=== PATIENT | female | born 1995 | race Caucasian/White ===

== ENCOUNTER 2018-04-22 17:26 | Observation (INO) ==
[2018-04-22 17:51] LABS: Microscopic, Urine URINE MICROSCOPIC (MICROSCOPIC)
[2018-04-22 17:53] LABS: Appearance,Urine CLEAR (Clear); Bilirubin,Urine Negative (Negative); Blood, Urine TRACE-I (Negative); Color,Urine YELLOW (Yellow); Glucose,Urine (UA) Negative (Negative); Ketones,Urine Negative (Negative); Leukocyte Esterase,Urine 2+ (Negative); PH,Urine 6.5 (5.0-8.5); Protein,Urine Negative (Negative); Specific Gravity, Urine <= 1.005 (1.005-1.030); Urobilinogen,Urine 0.2 EU/dl (0.2)
[2018-04-22 17:59] LABS: Basophils % 0.3 % (0.1-2.0); Eosinophils # 0.1 K/mm3 (0.0-0.4); Eosinophils % 0.8 % (0.1-12.0); Hematocrit 40.3 % (37.0-47.0); Hemoglobin 12.6 g/dL (12.2-16.2); Lymphocytes # 2.8 K/mm3 (0.7-4.5); Lymphocytes % 20.2 K/mm3 (10-50); Mean Corpuscular HGB Conc 31.2 g/dL (31.8-35.4); Mean Corpuscular Hemoglobin 27.4 pg (27.0-31.2); Mean Corpuscular Volume 87.7 fl (81-99); Mean Platelet Volume 9.7 fl (7.4-10.4); Monocytes # 0.8 K/mm3 (0.1-1.0); Monocytes % 5.7 % (1.7-9.3); Neutrophils # 10.2 K/mm3 (1.8-7.8); Platelet Count 390 K/mm3 (142-424); Red Cell Distribution Width 12.5 % (11.5-17.5)
[2018-04-22 18:08] LABS: Bacteria,Urine 2+ /lpf; Squamous Epithelial Cell,Urine 20-50 #/hpf (0-5); Trichomonas,Urine 2+ /lpf
[2018-04-22 18:14] LABS: Albumin Level 3.6 gm/dL (3.4-5.0); Albumin/Globulin Ratio 0.9 (1.1-1.8); Anion Gap 13.3 mEq/L (5-15); Bilirubin,Total 0.3 mg/dL (0.2-1.0); Calcium 8.5 mg/dL (8.5-10.1); Globulin 4.2 gm/dl (1.3-3.2); Potassium 3.3 mmoL/L (3.5-5.1); Total Protein,Serum 7.8 gm/dL (6.4-8.2)
--- NOTE | 2018-04-22 18:24 | Emergency Department Note ---
ED Disposition Clinical Impression: RUQ abdominal pain Disposition: Still a Patient Condition on Discharge: Fair Instructions: DI for Acute Abdomen Referrals: Ifeoma Romero MD [Primary Care Provider] - - Critical Care Critical Care Time: No Attestation: On 04/22/18, the high probability of a clinically significant, sudden or life threatening deterioration of the following system(s) required my full and direct attention, intervention and personal management. The time I documented below is in addition to time spent performing reported procedures but includes the following listed in this critical care notation. Medical Decision Making - Javed Inquiry Pt receiving controlled substance: No Javed was queried for this patient: No Vital Signs: 04/22/18 17:31 04/22/18 20:05 Temperature 99.3 F 98.1 F Temperature Source Oral Oral Pulse Rate [Right Radial] 138 H 89 Respiratory Rate 16 18 Blood Pressure [Right Arm] 168/108 139/84 Blood Pressure Mean [Right Arm] 128 102 Blood Pressure Source [Right Arm] Automatic Cuff Automatic Cuff Blood Pressure Position [Right Arm] Sitting Sitting 02 Sat by Pulse Oximetry 100 98 Oxygen Delivery Method Room Air Room Air - Lab Data Lab Results 04/22/18 17:44: Urine Color Yellow, Urine Appearance Clear, Urine pH 6.5, Ur Specific [place] <= 1.005, Urine Protein Negative, Urine Glucose (UA) Negative, Urine Ketones Negative, Urine Blood Trace-i, Urine Nitrate Negative, Urine Bilirubin Negative, Urine Urobilinogen 0.2, Ur Leukocyte Esterase 2+ A, Urine WBC 5-10, Ur Squamous Epith Cells 20-50, Urine Bacteria 2+, Urine Trichomonas 2+ 04/22/18 17:44: Urine HCG, Qual Negative 04/22/18 17:50: WBC 14.0 H, RBC 4.60, Hgb 12.6, Hct 40.3, MCV 87.7, MCH 27.4, MCHC 31.2 L, RDW 12.5, Plt Count 390, MPV 9.7, Neut % (Auto) 73.0, Lymph % (Auto ) 20.2, [place] % (Auto) 5.7, Eos % (Auto) 0.8, Baso % (Auto) 0.3, Neut # (Auto) 10.2 H, Lymph # (Auto) 2.8, [place] # (Auto) 0.8, Eos # (Auto) 0.1, Baso # (Auto) 0.0 04/22/18 17:50: Sodium 139, Potassium 3.3 L, Chloride 103, Carbon Dioxide 26, Anion Gap 13.3, BUN 6 L, Creatinine 0.72, Estimated Creat Clear 103, Estimated GFR 103, Est GFR ( Amer) 125, Glucose 102, Calcium 8.5, Total Bilirubin 0.3, AST 15, ALT 15, Alkaline Phosphatase 77, Total Protein 7.8, Albumin 3.6, Globulin 4.2 H, Albumin/Globulin Ratio 0.9 L, Amylase 46 04/22/18 17:50: Lipase 81 04/22/18 19:13: Lactic Acid 1.1 Result diagrams: 04/22/18 17:50 04/22/18 17:50 Orders (Tests/Meds): ED MEDICATIONS Generic Name Dose Route Start Last Admin Trade Name Freq PRN Reason Stop Dose Admin Ketorolac Tromethamine 15 mg 04/22/18 18:30 04/22/18 19:34 Toradol 30mg/Ml Vial IV 05/22/18 18:29 15 mg Q6H ABRAM Administration Discontinued Medications Generic Name Dose Route Start Last Admin Trade Name Freq PRN Reason Stop Dose Admin Metronidazole 100 mls @ 100 mls/hr 04/22/18 18:50 04/22/18 19:34 Flagyl 500mg/100ml Ivpb IV 04/22/18 19:49 100 mls/hr ONCE ONE Administration Protocol ORDERS Category Date Time Status CT abdomen pelvis w con Stat Cat Scan 04/22/18 18:18 Taken Blood Culture Stat Micro 04/22/18 19:13 Received Urine Culture Stat Micro 04/22/18 17:44 Received Medical Decision Narrative: Patient remained stable she received Toradol IV for pain obtain blood cultures lactic acid that was on normal limits she started on IV antibiotic. [address] Nicole the on-call surgeon who is reviewing the CT scan for disposition. [address] Nicole who advised bowel rest, IVF and IV ABx and RIQ US in AM. The patient and Dr Carmichael were agreeable. Abdominal Pain HPI - General Chief Complaint: Abdominal Pain Stated Complaint: right side pain Time Seen by Provider: 04/22/18 17:45 Mode of Arrival: Ambulatory Limitations: No Limitations Description of Symptoms (Recalled from ER Triage Doc. by RN): N/D, BLOATING, LOSS OF APPETITE FOR 3 DAYS AND LOSS OF APPETITE FOR A WEEK. PAIN IN RUQ - History of Present Illness HPI narrative: 22 years old white female smoker with a history of hypertension on beta- blockers and a poor historian. Yesterday at 9 AM she developed right upper quadrant pain after eating a heavy breakfast made of klein and grease. Kept ongoing sharp in character worse with deep breathing. She has no nausea no vomiting but she admits for having 3 loose bowel movements of pale-looking stool. She denies having him hematemesis hemoptysis coffee-ground emesis melanotic stool or bleeding per rectum. MD complaint: abdominal pain Onset (ago): hour(s) (33 hours.) Location: RUQ Severity: moderate Severity scale (1-10): 8 Quality: sharp Radiation: none Migration to: no migration Relieving factors: rest Exacerbating factors: other (Deep breathing. ) Associated symptoms: denies other symptoms - Related Data Allergies Allergy/AdvReac Type Severity Reaction Status Date / Time No Known Allergies Allergy Verified 04/22/18 17:41 [facility] History I have reviewed the patient's past medical history: Yes - Social History Smoking Status: Current every day smoker Tobacco Type: cigarettes # Packs/Day (cigarettes): 1 Alcohol Intake: never Substance Use Type: marijuana - Psychiatric History Expresses thoughts of harming self/others: None Suicide Plan Description: No Plan ROS Obtained: Yes All systems reviewed & no additional complaints Physical Exam - General General appearance: alert, in no apparent distress - Head Head exam: atraumatic, normocephalic, normal inspection - Eye Eye exam: Present: normal appearance, PERRL, EOMI - ENT ENT exam: Present: normal exam, normal oropharynx, mucous membranes moist, TM's normal bilaterally, normal external ear exam - Neck Neck exam: Present: normal inspection, full ROM, trachea midline. Absent: meningismus, lymphadenopathy - Chest Chest inspection: Present: normal inspection, symmetric chest wall rise. Absent : tenderness - Respiratory Respiratory exam: Present: normal lung sounds bilaterally. Absent: respiratory distress - Cardiovascular Cardiovascular exam: Present: regular rate, normal rhythm. Absent: JVD - Abdominal Exam Abdominal exam: Present: soft, normal bowel sounds, Duomnt's sign. Absent: distention, tenderness, guarding - External exam: Present: normal external exam - Extremities Exam Extremities exam: Present: normal inspection, full ROM, normal capillary refill. Absent: calf tenderness - Back Exam Back exam: Present: normal inspection. Absent: tenderness - Neurological Exam Neurological exam: Present: alert, oriented X3, CN II-XII intact, motor sensory deficit, reflexes normal - Psychiatric Psychiatric exam: Present: normal affect, normal mood - Skin Skin exam: Present: warm, dry, intact, normal color - Lymphatic Lymphatic Findings: no adenopathy
--- NOTE | 2018-04-22 23:04 | Progress Note ---
Internal Medicine - PN: Subj *Date: 04/22/18 *Time: 23:01 Interval history: This young lady has had abdominal discomfort since yesterday. The pain is in the right side. She has had some diarrhea. She has not had vomiting. Her evaluation in the emergency room reportedly pointed toward the colitis rather than a gallbladder problem. She is receiving IV antibiotics. There is a surgical consult. Exam Vital signs and Labs for Last 24 Hours: Temp Pulse Resp BP Pulse Ox 98.1 F 86 18 132/80 98 04/22/18 21:30 04/22/18 21:30 04/22/18 21:30 04/22/18 21:30 04/22/18 21:25 Laboratory Results - last 24 hr 04/22/18 17:44: Urine Color Yellow, Urine Appearance Clear, Urine pH 6.5, Ur Specific [place] <= 1.005, Urine Protein Negative, Urine Glucose (UA) Negative, Urine Ketones Negative, Urine Blood Trace-i, Urine Nitrate Negative, Urine Bilirubin Negative, Urine Urobilinogen 0.2, Ur Leukocyte Esterase 2+ A, Urine WBC 5-10, Ur Squamous Epith Cells 20-50, Urine Bacteria 2+, Urine Trichomonas 2+ 04/22/18 17:44: Urine HCG, Qual Negative 04/22/18 17:50: WBC 14.0 H, RBC 4.60, Hgb 12.6, Hct 40.3, MCV 87.7, MCH 27.4, MCHC 31.2 L, RDW 12.5, Plt Count 390, MPV 9.7, Neut % (Auto) 73.0, Lymph % (Auto ) 20.2, [place] % (Auto) 5.7, Eos % (Auto) 0.8, Baso % (Auto) 0.3, Neut # (Auto) 10.2 H, Lymph # (Auto) 2.8, [place] # (Auto) 0.8, Eos # (Auto) 0.1, Baso # (Auto) 0.0 04/22/18 17:50: Sodium 139, Potassium 3.3 L, Chloride 103, Carbon Dioxide 26, Anion Gap 13.3, BUN 6 L, Creatinine 0.72, Estimated Creat Clear 103, Estimated GFR 103, Est GFR ( Amer) 125, Glucose 102, Calcium 8.5, Total Bilirubin 0.3, AST 15, ALT 15, Alkaline Phosphatase 77, Total Protein 7.8, Albumin 3.6, Globulin 4.2 H, Albumin/Globulin Ratio 0.9 L, Amylase 46 04/22/18 17:50: Lipase 81 04/22/18 19:13: Lactic Acid 1.1 I & O for Last 24 hours: Intake & Output 04/20/18 04/21/18 04/22/18 04/23/18 11:59 11:59 11:59 11:59 Weight 118 lb - Constitutional no acute distress - *Routine HEENT Exam Head: Present: normocephalic ENT: Present: mucous membranes moist - *Routine Neck Exam Present: supple - *Routine Respiratory Exam Comments: Somewhat decreased breath sounds and there may be some rales at the right base. She has abdominal discomfort when she takes a deep breath. - *Routine Cardiovascular Exam Present: RRR - *Routine Abdominal Exam Present: soft Comments: She has tenderness on the right side, in the right upper and lower quadrant areas. No masses are palpable. - *Routine Rectal Exam Comments: Not done - *Routine Extremities Exam Absent: edema - *Routine Skin Exam Present: intact - *Routine Neurological Exam Present: alert, oriented X3 Assessment and Plan (1) Colitis Current visit: Yes Status: Acute Category: Medical Code(s): K52.9 - Noninfective gastroenteritis and colitis, unspecified - Assessment and plan all Dx Assessment and Plan for all problems:: Receiving IV antibiotics. Stool PCR will be ordered. Surgical consult is obtained.
[2018-04-23 05:59] LABS: Basophils % 0.3 % (0.1-2.0); Eosinophils # 0.1 K/mm3 (0.0-0.4); Eosinophils % 1.2 % (0.1-12.0); Hematocrit 36.3 % (37.0-47.0); Hemoglobin 11.6 g/dL (12.2-16.2); Lymphocytes # 1.8 K/mm3 (0.7-4.5); Lymphocytes % 16.6 K/mm3 (10-50); Mean Corpuscular Hemoglobin 28.3 pg (27.0-31.2); Mean Corpuscular Volume 88.6 fl (81-99); Mean Platelet Volume 9.9 fl (7.4-10.4); Monocytes # 0.7 K/mm3 (0.1-1.0); Monocytes % 6.2 % (1.7-9.3); Neutrophils # 8.2 K/mm3 (1.8-7.8); Neutrophils % 75.8 % (37.0-80.0); Platelet Count 321 K/mm3 (142-424); Red Cell Distribution Width 12.5 % (11.5-17.5); White Blood Count 10.8 K/mm3 (4.5-13.0)
[2018-04-23 06:14] LABS: Anion Gap 12.7 mEq/L (5-15); Calcium 8.1 mg/dL (8.5-10.1); Potassium 3.7 mmoL/L (3.5-5.1)
--- NOTE | 2018-04-23 07:20 | Pharmacy Consult Notes ---
[facility] Pharmacy VTE Monitoring - Patient Demographics Admission date: 04/22/18 Report Date: 04/23/18 Time: 07:19 Allergies/Adverse Reactions: Patient Allergies No Known Allergies Allergy (Verified 04/22/18 17:41) Height: 1.57 m Weight: 53.524 kg Patient Problems: Current Active Problems RUQ abdominal pain (Acute) Colitis (Acute) - VTE Risk Labs: VTE Related Lab Results Hgb 11.6 g/dL (12.2-16.2) L 04/23/18 05:23 Hct 36.3 % (37.0-47.0) L 04/23/18 05:23 Plt Count 321 K/mm3 (142-424) 04/23/18 05:23 BUN 6 mg/dL (7-18) L 04/23/18 05:23 Creatinine 0.71 mg/dL (0.55-1.02) 04/23/18 05:23 Estimated Creat Clear 107 mL/min (0-300) 04/23/18 05:23 Was VTE Risk Assessment Performed: Yes VTE Score: 0 VTE Risk Level: Very Low Risk - Prophylaxis VTE Prophylaxis Ordered?: Yes Types of VTE Prophylaxis: TEDS Knee High Location of Applied Device: Bilateral Lower Extremeties - VTE Diagnosis Confirmed Treatment or plan recommended: Continue Current Treatment
--- NOTE | 2018-04-23 08:48 | History & Physical Report ---
*Admission Date: 04/22/18 *Chief complaint: abdominal pain *History of present illness: Ms. Tony is a 22yo female who has had abdominal discomfort for the past 2 days. The pain is in the right side. She has had some diarrhea. She has not had vomiting. Her evaluation in the emergency room reportedly pointed toward colitis rather than a gallbladder problem. She is receiving IV antibiotics. There is a surgical consult. [facility] History Medical History: Reports:: Hypertension Denies:: Cancer, Diabetes Mellitus Type 1, Diabetes Mellitus Type 2, MRSA Other Surgeries: Yes: No Previous Surgery Amputation: No Fractures: No - *Social History Educational Level: Attended High School Smoking Status: Current every day smoker Tobacco Type: cigarettes # Packs/Day (cigarettes): 1 #Yrs smoked (if former smoker): 11 Alcohol Intake: never Substance Use Type: marijuana Occupational Status: unemployed Housing: house Household Members: family - Psychiatric History Expresses thoughts of harming self/others: None Suicide Plan Description: No Plan *Family Hx:: Cancer (ovarian) Review of Systems - Constitutional Reports weakness, Denies fever(s) - Eyes Denies blurry vision, Denies double vision - ENT Denies nasal congestion, Denies sore throat - *Cardiovascular Denies chest pain, Denies rapid, pounding, or irregular heartbeat - *Respiratory Denies cough, Denies shortness of breath - *Gastrointestinal Reports abdominal pain (right side), Reports loose stools, Reports nausea, Denies bright, red blood in stools, Denies vomiting - *Genitourinary Denies difficulty urinating, Denies painful urination - *Musculoskeletal Denies joint pain - *Neurologic Reports headache(s), Reports weakness, Denies dizziness Meds Home Medications Medication Instructions Recorded Confirmed Type Metoprolol Tartrate 100 mg PO DAILY 04/22/18 04/22/18 History Allergies Allergy/AdvReac Type Severity Reaction Status Date / Time No Known Allergies Allergy Verified 04/22/18 17:41 Exam Vital signs and Labs for Last 24 Hours: Temp Pulse Resp BP Pulse Ox 98.2 F 96 H 18 146/88 98 04/23/18 07:27 04/23/18 07:27 04/23/18 07:27 04/23/18 07:27 04/23/18 07:27 Laboratory Results - last 24 hr 04/22/18 17:44: Urine Color Yellow, Urine Appearance Clear, Urine pH 6.5, Ur Specific [place] <= 1.005, Urine Protein Negative, Urine Glucose (UA) Negative, Urine Ketones Negative, Urine Blood Trace-i, Urine Nitrate Negative, Urine Bilirubin Negative, Urine Urobilinogen 0.2, Ur Leukocyte Esterase 2+ A, Urine WBC 5-10, Ur Squamous Epith Cells 20-50, Urine Bacteria 2+, Urine Trichomonas 2+ 04/22/18 17:44: Urine HCG, Qual Negative 04/22/18 17:50: WBC 14.0 H, RBC 4.60, Hgb 12.6, Hct 40.3, MCV 87.7, MCH 27.4, MCHC 31.2 L, RDW 12.5, Plt Count 390, MPV 9.7, Neut % (Auto) 73.0, Lymph % (Auto ) 20.2, [place] % (Auto) 5.7, Eos % (Auto) 0.8, Baso % (Auto) 0.3, Neut # (Auto) 10.2 H, Lymph # (Auto) 2.8, [place] # (Auto) 0.8, Eos # (Auto) 0.1, Baso # (Auto) 0.0 04/22/18 17:50: Sodium 139, Potassium 3.3 L, Chloride 103, Carbon Dioxide 26, Anion Gap 13.3, BUN 6 L, Creatinine 0.72, Estimated Creat Clear 103, Estimated GFR 103, Est GFR ( Amer) 125, Glucose 102, Calcium 8.5, Total Bilirubin 0.3, AST 15, ALT 15, Alkaline Phosphatase 77, Total Protein 7.8, Albumin 3.6, Globulin 4.2 H, Albumin/Globulin Ratio 0.9 L, Amylase 46 04/22/18 17:50: Lipase 81 04/22/18 19:13: Lactic Acid 1.1 04/23/18 05:23: WBC 10.8, RBC 4.10 L, Hgb 11.6 L, Hct 36.3 L, MCV 88.6, MCH 28.3 , MCHC 32.0, RDW 12.5, Plt Count 321, MPV 9.9, Neut % (Auto) 75.8, Lymph % (Auto ) 16.6, [place] % (Auto) 6.2, Eos % (Auto) 1.2, Baso % (Auto) 0.3, Neut # (Auto) 8.2 H, Lymph # (Auto) 1.8, [place] # (Auto) 0.7, Eos # (Auto) 0.1, Baso # (Auto) 0.0 04/23/18 05:23: Sodium 138, Potassium 3.7, Chloride 105, Carbon Dioxide 24, Anion Gap 12.7, BUN 6 L, Creatinine 0.71, Estimated Creat Clear 107, Estimated GFR 105, Est GFR ( Amer) 127, Glucose 103, Calcium 8.1 L, Triglycerides 69, Cholesterol 108 L, LDL Cholesterol 67, VLDL Cholesterol 14, HDL Cholesterol 27 L, Cholesterol/HDL Ratio 4.0 H I & O for Last 24 hours: Intake & Output 04/20/18 04/21/18 04/22/18 04/23/18 11:59 11:59 11:59 11:59 Intake Total 150 / 150 Balance 150 / 150 Weight 118 lb - Constitutional no acute distress - *Routine HEENT Exam Head: Present: normocephalic, atraumatic Eye: Present: EOMI ENT: Present: mucous membranes dry - *Routine Neck Exam Present: supple, full ROM - *Routine Respiratory Exam Present: CTA bilaterally - *Routine Cardiovascular Exam Present: RRR - *Routine Abdominal Exam Present: soft, normoactive bowel sounds, tenderness (right upper and mid quadrants) - *Routine Extremities Exam Absent: edema - *Routine Skin Exam Present: intact - *Routine Neurological Exam Present: alert, oriented X3 H&P: Result - Labs Labs: Assessment and Plan (1) Colitis Current visit: Yes Status: Acute Category: Medical Code(s): K52.9 - Noninfective gastroenteritis and colitis, unspecified (2) Hypertension Current visit: Yes Status: Acute Category: Medical Code(s): I10 - Essential (primary) hypertension - Assessment and plan all Dx Assessment and Plan for all problems:: Still awaiting abdominal CT report. Surgery has been consulted. Patient has been started on antibiotics and IV pain medication. Will restart on her metoprolol as well.
--- NOTE | 2018-04-23 09:13 | Consult Report ---
*Admission Date: 04/22/18 *Chief complaint: Right upper quadrant pain *History of present illness: This is a 22-year-old female seen in consultation from Dr. Carmichael service for evaluation regarding right upper quadrant pain. Below is a forwarded copy of her history of present illness from her admission H &P: Ms. Tony is a 22yo female who has had abdominal discomfort for the past 2 days. The pain is in the right side. She has had some diarrhea. She has not had vomiting. Her evaluation in the emergency room reportedly pointed toward colitis rather than a gallbladder problem. She is receiving IV antibiotics. There is a surgical consult. Review of Systems - Constitutional Reports anorexia - Eyes Denies change in vision - *Cardiovascular Denies chest pain - *Respiratory Denies cough - *Gastrointestinal Reports abdominal pain, Reports nausea, Denies vomiting blood, Denies bright, red blood in stools, Denies vomiting - *Neurologic Reports headache(s), Reports weakness, Denies dizziness - Hematologic/Lymphatic Denies easy bleeding [facility] History Medical History: Reports:: Hypertension Denies:: Cancer, Diabetes Mellitus Type 1, Diabetes Mellitus Type 2, MRSA Other Surgeries: Yes: No Previous Surgery Amputation: No Fractures: No - *Social History Educational Level: Attended High School Smoking Status: Current every day smoker Tobacco Type: cigarettes # Packs/Day (cigarettes): 1 #Yrs smoked (if former smoker): 11 Alcohol Intake: never Substance Use Type: marijuana Occupational Status: unemployed Housing: house Household Members: family - Psychiatric History Expresses thoughts of harming self/others: None Suicide Plan Description: No Plan *Family Hx:: Cancer (ovarian) Meds Home Medications Medication Instructions Recorded Confirmed Type Metoprolol Tartrate 100 mg PO DAILY 04/22/18 04/22/18 History Allergies Allergy/AdvReac Type Severity Reaction Status Date / Time No Known Allergies Allergy Verified 04/22/18 17:41 Exam Vital signs and Labs for Last 24 Hours: Temp Pulse Resp BP Pulse Ox 98.2 F 96 H 18 146/88 98 04/23/18 07:27 04/23/18 07:27 04/23/18 07:27 04/23/18 07:27 04/23/18 07:27 Laboratory Results - last 24 hr 04/22/18 17:44: Urine Color Yellow, Urine Appearance Clear, Urine pH 6.5, Ur Specific [place] <= 1.005, Urine Protein Negative, Urine Glucose (UA) Negative, Urine Ketones Negative, Urine Blood Trace-i, Urine Nitrate Negative, Urine Bilirubin Negative, Urine Urobilinogen 0.2, Ur Leukocyte Esterase 2+ A, Urine WBC 5-10, Ur Squamous Epith Cells 20-50, Urine Bacteria 2+, Urine Trichomonas 2+ 04/22/18 17:44: Urine HCG, Qual Negative 04/22/18 17:50: WBC 14.0 H, RBC 4.60, Hgb 12.6, Hct 40.3, MCV 87.7, MCH 27.4, MCHC 31.2 L, RDW 12.5, Plt Count 390, MPV 9.7, Neut % (Auto) 73.0, Lymph % (Auto ) 20.2, [place] % (Auto) 5.7, Eos % (Auto) 0.8, Baso % (Auto) 0.3, Neut # (Auto) 10.2 H, Lymph # (Auto) 2.8, [place] # (Auto) 0.8, Eos # (Auto) 0.1, Baso # (Auto) 0.0 04/22/18 17:50: Sodium 139, Potassium 3.3 L, Chloride 103, Carbon Dioxide 26, Anion Gap 13.3, BUN 6 L, Creatinine 0.72, Estimated Creat Clear 103, Estimated GFR 103, Est GFR ( Amer) 125, Glucose 102, Calcium 8.5, Total Bilirubin 0.3, AST 15, ALT 15, Alkaline Phosphatase 77, Total Protein 7.8, Albumin 3.6, Globulin 4.2 H, Albumin/Globulin Ratio 0.9 L, Amylase 46 04/22/18 17:50: Lipase 81 04/22/18 19:13: Lactic Acid 1.1 04/23/18 05:23: WBC 10.8, RBC 4.10 L, Hgb 11.6 L, Hct 36.3 L, MCV 88.6, MCH 28.3 , MCHC 32.0, RDW 12.5, Plt Count 321, MPV 9.9, Neut % (Auto) 75.8, Lymph % (Auto ) 16.6, [place] % (Auto) 6.2, Eos % (Auto) 1.2, Baso % (Auto) 0.3, Neut # (Auto) 8.2 H, Lymph # (Auto) 1.8, [place] # (Auto) 0.7, Eos # (Auto) 0.1, Baso # (Auto) 0.0 04/23/18 05:23: Sodium 138, Potassium 3.7, Chloride 105, Carbon Dioxide 24, Anion Gap 12.7, BUN 6 L, Creatinine 0.71, Estimated Creat Clear 107, Estimated GFR 105, Est GFR ( Amer) 127, Glucose 103, Calcium 8.1 L, Triglycerides 69, Cholesterol 108 L, LDL Cholesterol 67, VLDL Cholesterol 14, HDL Cholesterol 27 L, Cholesterol/HDL Ratio 4.0 H I & O for Last 24 hours: Intake & Output 04/20/18 04/21/18 04/22/18 04/23/18 11:59 11:59 11:59 11:59 Intake Total 150 / 150 Balance 150 / 150 Weight 118 lb - Constitutional mild distress Comments: Complaining of abdominal pain - *Routine Respiratory Exam Absent: respiratory distress - *Routine Abdominal Exam Present: soft, tenderness. Absent: distended Comments: RUQ TTP Results - Labs 04/23/18 05:23 04/23/18 05:23 Laboratory Results - last 24 hr 04/22/18 17:44: Urine Color Yellow, Urine Appearance Clear, Urine pH 6.5, Ur Specific [place] <= 1.005, Urine Protein Negative, Urine Glucose (UA) Negative, Urine Ketones Negative, Urine Blood Trace-i, Urine Nitrate Negative, Urine Bilirubin Negative, Urine Urobilinogen 0.2, Ur Leukocyte Esterase 2+ A, Urine WBC 5-10, Ur Squamous Epith Cells 20-50, Urine Bacteria 2+, Urine Trichomonas 2+ 04/22/18 17:44: Urine HCG, Qual Negative 04/22/18 17:50: WBC 14.0 H, RBC 4.60, Hgb 12.6, Hct 40.3, MCV 87.7, MCH 27.4, MCHC 31.2 L, RDW 12.5, Plt Count 390, MPV 9.7, Neut % (Auto) 73.0, Lymph % (Auto ) 20.2, [place] % (Auto) 5.7, Eos % (Auto) 0.8, Baso % (Auto) 0.3, Neut # (Auto) 10.2 H, Lymph # (Auto) 2.8, [place] # (Auto) 0.8, Eos # (Auto) 0.1, Baso # (Auto) 0.0 04/22/18 17:50: Sodium 139, Potassium 3.3 L, Chloride 103, Carbon Dioxide 26, Anion Gap 13.3, BUN 6 L, Creatinine 0.72, Estimated Creat Clear 103, Estimated GFR 103, Est GFR ( Amer) 125, Glucose 102, Calcium 8.5, Total Bilirubin 0.3, AST 15, ALT 15, Alkaline Phosphatase 77, Total Protein 7.8, Albumin 3.6, Globulin 4.2 H, Albumin/Globulin Ratio 0.9 L, Amylase 46 04/22/18 17:50: Lipase 81 04/22/18 19:13: Lactic Acid 1.1 04/23/18 05:23: WBC 10.8, RBC 4.10 L, Hgb 11.6 L, Hct 36.3 L, MCV 88.6, MCH 28.3 , MCHC 32.0, RDW 12.5, Plt Count 321, MPV 9.9, Neut % (Auto) 75.8, Lymph % (Auto ) 16.6, [place] % (Auto) 6.2, Eos % (Auto) 1.2, Baso % (Auto) 0.3, Neut # (Auto) 8.2 H, Lymph # (Auto) 1.8, [place] # (Auto) 0.7, Eos # (Auto) 0.1, Baso # (Auto) 0.0 04/23/18 05:23: Sodium 138, Potassium 3.7, Chloride 105, Carbon Dioxide 24, Anion Gap 12.7, BUN 6 L, Creatinine 0.71, Estimated Creat Clear 107, Estimated GFR 105, Est GFR ( Amer) 127, Glucose 103, Calcium 8.1 L, Triglycerides 69, Cholesterol 108 L, LDL Cholesterol 67, VLDL Cholesterol 14, HDL Cholesterol 27 L, Cholesterol/HDL Ratio 4.0 H - Imaging CT scan - abdomen: report reviewed, image reviewed CT scan - pelvis: report reviewed, image reviewed Assessment and Plan (1) Colitis Current visit: Yes Status: Acute Category: Medical Code(s): K52.9 - Noninfective gastroenteritis and colitis, unspecified (2) Hypertension Current visit: Yes Status: Acute Category: Medical Code(s): I10 - Essential (primary) hypertension (3) RUQ abdominal pain Current visit: Yes Status: Acute Category: Medical Code(s): R10.11 - Right upper quadrant pain I have discussed the patient's CT scan with Dr. Maxwell. No definitive evidence of biliary disease per CT scan. Ultrasound pending. Changes consistent with possible enterocolitis. Follow-up pending ultrasound Continue NPO status for now Continue antibiotics for now Serial abdominal exams
--- NOTE | 2018-04-24 06:53 | Progress Note ---
Subjective Patient reports: other (feels "slightly better" this AM...increased nausea yesterday) Exam Vital signs and Labs for Last 24 Hours: Temp Pulse Resp BP Pulse Ox 97.6 F 81 16 152/79 97 04/24/18 04:00 04/24/18 04:00 04/24/18 04:00 04/24/18 04:00 04/24/18 04:00 I & O for Last 24 hours: Intake & Output 04/21/18 04/22/18 04/23/18 04/24/18 11:59 11:59 11:59 11:59 Intake Total 150 / 150 350 / 350 Output Total 700 / 700 Balance 150 / 150 -350 / -350 Weight 118 lb Microbiology Reports for the Last 24 Hours: Microbiology 04/22/18 17:44 Urine,Clean Catch Urine Culture - Preliminary NO GROWTH AFTER 24 HOURS Radiology Reports for the Last 24 Hours: CT shows changes most c/w enterocolitis US shows changes concerning for hepatitis (no significant GB abnormality) - Constitutional no acute distress - *Routine Respiratory Exam Absent: respiratory distress - *Routine Abdominal Exam Present: soft, tenderness Comments: RUQ TTP persists Progress Note: A&P (1) Colitis Status: Acute Assessment and plan: continue medical management Current Visit: Yes (2) Hypertension Status: Acute Current Visit: Yes (3) RUQ abdominal pain Status: Acute Assessment and plan: ? hepatitis (based on US) f/u pending hepatitis panel Current Visit: Yes
--- NOTE | 2018-04-24 08:31 | Progress Note ---
Internal Medicine - PN: Subj *Date: 04/24/18 *Time: 08:28 Interval history: Patient states she feels slightly better this morning. She is still having right upper quadrant and mild right middle quadrant pain. She has been able to eat a small amount of food. She states she still did not rest well last night. Exam Vital signs and Labs for Last 24 Hours: Temp Pulse Resp BP Pulse Ox 98.5 F 87 16 149/78 98 04/24/18 08:00 04/24/18 08:00 04/24/18 08:00 04/24/18 08:00 04/24/18 08:00 I & O for Last 24 hours: Intake & Output 04/21/18 04/22/18 04/23/18 04/24/18 11:59 11:59 11:59 11:59 Intake Total 150 / 150 450 / 450 Output Total 1400 / 1400 Balance 150 / 150 -950 / -950 Weight 118 lb Microbiology Reports for the Last 24 Hours: Microbiology 04/22/18 17:44 Urine,Clean Catch Urine Culture - Final Multiple organisms, suggests contamination. Radiology Reports for the Last 24 Hours: Abdominal CT There is a small amount of fluid in the lower perihepatic region and hepatorenal area on the right with minimal stranding of the fat also with a small amount of fluid in the pelvis which has a somewhat hazy density. There are a few scattered air-fluid levels in the small bowel. Underlying inflammation /enterocolitis is a consideration. No abscess or free air evident. There are multiple unopacified bowel loops present within the abdomen/pelvis which could obscure or mimic pathology. If symptoms persists, consider repeating exam with IV and oral contrast administration RUQ U/S No gallstones. No evidence of cholecystitis. Starry night appearance of the liver which be seen with hepatitis. Please correlate clinically - Constitutional no acute distress - *Routine Respiratory Exam Present: CTA bilaterally - *Routine Cardiovascular Exam Present: RRR - *Routine Abdominal Exam Present: soft, normoactive bowel sounds, tenderness (RUQ and RMQ pain) - *Routine Extremities Exam Absent: edema Assessment and Plan (1) Colitis Current visit: Yes Status: Acute Category: Medical Code(s): K52.9 - Noninfective gastroenteritis and colitis, unspecified (2) Hypertension Current visit: Yes Status: Acute Category: Medical Code(s): I10 - Essential (primary) hypertension (3) RUQ abdominal pain Current visit: Yes Status: Acute Category: Medical Code(s): R10.11 - Right upper quadrant pain (4) Trichomonas infection Current visit: Yes Status: Acute Category: Medical Code(s): A59.9 - Trichomoniasis, unspecified - Assessment and plan all Dx Assessment and Plan for all problems:: Patient's urine showed a trichomonas infection. She is on Flagyl. Her ultrasound showed a possible hepatitis. We will get hepatitis panel today. Continue IV antibiotics.
[2018-04-24 10:28] LABS: Albumin Level 3.7 gm/dL (3.4-5.0); Albumin/Globulin Ratio 0.8 (1.1-1.8); Bilirubin,Total 0.3 mg/dL (0.2-1.0); Calcium 8.9 mg/dL (8.5-10.1); Globulin 4.6 gm/dl (1.3-3.2); Total Protein,Serum 8.3 gm/dL (6.4-8.2)
--- NOTE | 2018-04-24 12:59 | Consult Report ---
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 Tony is a 22 year old female CC: Josefina Carmcihael MD This 22-year-old 1 para 0 AB 1 white female has been hospitalized past 3 days with abdominal pain. CT and ultrasound of the abdomen were unremarkable. The patient has remained afebrile. Trichomonas is been discovered on vaginal culture, and the patient is receiving intravenous Flagyl. I have been asked to evaluate the patient from a gynecologic standpoint. She is a well-nourished well-developed white female, in no apparent acute distress. Her vital signs are normal. She states that she had one miscarriage, but also states that she has never had an actual Pap smear. She is not using any form of control. Abdominal examination reveals exquisite tenderness with rebound in the right upper quadrant, a positive Dumont's sign. Her liver edge is not palpable and does not seem tender. Her lower abdomen and transabdominal pelvic assessment seems normal, without tenderness. A bimanual pelvic examination in the patient's hospital bed reveals a normal size uterus and some tenderness in the left adnexal area, but no distinct mass that is palpable. Impression: #1: Trichomonas vaginalis, adequately treated with intravenous Flagyl. At some point the patient should have a follow-up pelvic exam, culture , and Pap smear. #2: Upper abdominal pain, consistent with cholecystitis. (I am told that Dr. Anderson [general surgery]has seen the patient and does not feel that her gallbladder is the culprit. #3: Her pelvic exam is not terribly remarkable. Apparently a test has not been done and I have ordered one for completeness. I have discussed with her the need for a transvaginal pelvic ultrasound to be certain of that; it has been ordered. Plan: I will check on the results of the vaginal ultrasound. If it is normal she needs routine gynecologic follow-up in addition to whatever determined about her right upper quadrant pain; I will be happy to see her in the office at some point for that purpose. If the pelvic ultrasound is abnormal, I will address that issue. Thank you for consulting me Review of Systems - *Neurologic Reports headache(s), Reports weakness, Denies dizziness [facility] History Medical History: Reports:: Hypertension Denies:: Cancer, Diabetes Mellitus Type 1, Diabetes Mellitus Type 2, MRSA Other Surgeries: Yes: No Previous Surgery Amputation: No Fractures: No - *Social History Educational Level: Attended High School Smoking Status: Current every day smoker Tobacco Type: cigarettes # Packs/Day (cigarettes): 1 #Yrs smoked (if former smoker): 11 Alcohol Intake: never Substance Use Type: marijuana Occupational Status: unemployed Housing: house Household Members: family - Psychiatric History Expresses thoughts of harming self/others: None Suicide Plan Description: No Plan *Family Hx:: Cancer (ovarian) Meds Home Medications Medication Instructions Recorded Confirmed Type Metoprolol Tartrate 50 mg PO DAILY 04/23/18 04/23/18 History Allergies Allergy/AdvReac Type Severity Reaction Status Date / Time No Known Allergies Allergy Verified 04/22/18 17:41 [employer] O[employer] - Exam Vital signs: Temp Pulse Resp BP Pulse Ox 98.5 F 87 18 149/78 98 04/24/18 08:00 04/24/18 08:00 04/24/18 12:47 04/24/18 08:00 04/24/18 08:00 [employer] OPERATOR - Results - Labs CBC & Chem 7: 04/23/18 05:23 04/24/18 10:10 Labs: BMP 04/24/18 10:10 Sodium 137 Potassium 4.0 Chloride 102 Carbon Dioxide 27 BUN 7 Creatinine 0.75 Glucose 89 Calcium 8.9 Liver Function 04/24/18 Range/Units 10:10 Total Bilirubin 0.3 (0.2-1.0) mg/dL AST 12 L (15-37) U/L ALT 14 (12-78) U/L Alkaline Phosphatase 82 (46-116) U/L Albumin 3.7 (3.4-5.0) gm/dL Assessment and Plan (1) Colitis Current visit: Yes Status: Acute Category: Medical Code(s): K52.9 - Noninfective gastroenteritis and colitis, unspecified (2) Hypertension Current visit: Yes Status: Acute Category: Medical Code(s): I10 - Essential (primary) hypertension (3) RUQ abdominal pain Current visit: Yes Status: Acute Category: Medical Code(s): R10.11 - Right upper quadrant pain (4) Trichomonas infection Current visit: Yes Status: Acute Category: Medical Code(s): A59.9 - Trichomoniasis, unspecified
[2018-04-24 18:45] LABS: Amphetamine/Metha Screen,Urine Negative ng/mL (<1000); Barbiturates Screen,Urine Negative ng/mL (<200); Benzodiazepines Screen,Urine Positive ng/mL (<200); Cannabinoid Screen,Urine Positive ng/mL (<50); Cocaine Screen,Urine Positive ng/mL (<300); Methadone Screen,Urine Negative ng/mL (<300); Opiate Screen,Urine Negative ng/mL (<300); Phencyclidine Screen,Urine Negative ng/mL (<25)
--- NOTE | 2018-04-25 07:11 | Progress Note ---
Subjective Patient reports: feels better (wants to go home) Exam Vital signs and Labs for Last 24 Hours: Temp Pulse Resp BP Pulse Ox 98.2 F 82 16 129/75 98 04/25/18 03:44 04/25/18 03:44 04/25/18 03:44 04/25/18 03:44 04/25/18 03:44 Laboratory Results - last 24 hr 04/22/18 17:49: Urine HCG, Qual Negative 04/22/18 17:49: Urine Opiates Screen Negative, Urine Methadone Screen Negative, Ur Barbituates Screen Negative, Ur Phencyclidine Scrn Negative, Ur Amphetamines Screen Negative, U Benzodiazepines Scrn Positive H, Urine Cocaine Screen Positive H, U Marijuana (THC) Screen Positive H 04/24/18 10:10: Sodium 137, Potassium 4.0, Chloride 102, Carbon Dioxide 27, Anion Gap 12.0, BUN 7, Creatinine 0.75, Estimated Creat Clear 101, Estimated GFR 99, Est GFR ( Amer) 119, Glucose 89, Calcium 8.9, Total Bilirubin 0.3 , AST 12 L, ALT 14, Alkaline Phosphatase 82, Total Protein 8.3 H, Albumin 3.7, Globulin 4.6 H, Albumin/Globulin Ratio 0.8 L I & O for Last 24 hours: Intake & Output 04/22/18 04/23/18 04/24/18 04/25/18 11:59 11:59 11:59 11:59 Intake Total 150 / 150 550 / 550 490 / 490 Output Total 1400 / 1400 1100 / 1100 Balance 150 / 150 -850 / -850 -610 / -610 Weight 118 lb Microbiology Reports for the Last 24 Hours: Microbiology 04/22/18 19:13 Blood Blood Culture - Preliminary NO GROWTH AFTER 48 HOURS 04/22/18 19:13 Blood Blood Culture - Preliminary NO GROWTH AFTER 48 HOURS 04/22/18 17:44 Urine,Clean Catch Urine Culture - Final Multiple organisms, suggests contamination. - Constitutional no acute distress - *Routine Respiratory Exam Absent: respiratory distress - *Routine Abdominal Exam Present: soft Comments: less TTP Progress Note: A&P (1) Colitis Status: Acute Current Visit: Yes (2) Hypertension Status: Acute Current Visit: Yes (3) RUQ abdominal pain Status: Acute Assessment and plan: most likely secondary to enterocolitis and/or hepatitis (as these are the only findings per CT and US). no evidence of biliary disease. [she states that she is "much better now"] ongoing care as per primary service Current Visit: Yes (4) Trichomonas infection Status: Acute Current Visit: Yes
[2018-04-25 08:15] VITALS: BP 156/85
--- NOTE | 2018-04-25 08:18 | Progress Note ---
Internal Medicine - PN: Subj *Date: 04/25/18 *Time: 08:15 Interval history: Patient states she feels fine this morning. She had a HIDA scan last night. She denies any pain and would like some food. Exam Vital signs and Labs for Last 24 Hours: Temp Pulse Resp BP Pulse Ox 98.4 F 87 16 156/85 99 04/25/18 08:00 04/25/18 08:00 04/25/18 08:00 04/25/18 08:00 04/25/18 08:00 Laboratory Results - last 24 hr 04/22/18 17:49: Urine HCG, Qual Negative 04/22/18 17:49: Urine Opiates Screen Negative, Urine Methadone Screen Negative, Ur Barbituates Screen Negative, Ur Phencyclidine Scrn Negative, Ur Amphetamines Screen Negative, U Benzodiazepines Scrn Positive H, Urine Cocaine Screen Positive H, U Marijuana (THC) Screen Positive H 04/24/18 10:10: Sodium 137, Potassium 4.0, Chloride 102, Carbon Dioxide 27, Anion Gap 12.0, BUN 7, Creatinine 0.75, Estimated Creat Clear 101, Estimated GFR 99, Est GFR ( Amer) 119, Glucose 89, Calcium 8.9, Total Bilirubin 0.3 , AST 12 L, ALT 14, Alkaline Phosphatase 82, Total Protein 8.3 H, Albumin 3.7, Globulin 4.6 H, Albumin/Globulin Ratio 0.8 L I & O for Last 24 hours: Intake & Output 04/22/18 04/23/18 04/24/18 04/25/18 11:59 11:59 11:59 11:59 Intake Total 150 / 150 550 / 550 490 / 490 Output Total 1400 / 1400 1100 / 1100 Balance 150 / 150 -850 / -850 -610 / -610 Weight 118 lb Microbiology Reports for the Last 24 Hours: Microbiology 04/22/18 19:13 Blood Blood Culture - Preliminary NO GROWTH AFTER 48 HOURS 04/22/18 19:13 Blood Blood Culture - Preliminary NO GROWTH AFTER 48 HOURS 04/22/18 17:44 Urine,Clean Catch Urine Culture - Final Multiple organisms, suggests contamination. - Constitutional no acute distress - *Routine Respiratory Exam Present: CTA bilaterally - *Routine Cardiovascular Exam Present: RRR - *Routine Abdominal Exam Present: soft, normoactive bowel sounds. Absent: tenderness - *Routine Extremities Exam Absent: edema Assessment and Plan (1) Colitis Current visit: Yes Status: Acute Category: Medical Code(s): K52.9 - Noninfective gastroenteritis and colitis, unspecified (2) Hypertension Current visit: Yes Status: Acute Category: Medical Code(s): I10 - Essential (primary) hypertension (3) RUQ abdominal pain Current visit: Yes Status: Acute Category: Medical Code(s): R10.11 - Right upper quadrant pain (4) Trichomonas infection Current visit: Yes Status: Acute Category: Medical Code(s): A59.9 - Trichomoniasis, unspecified (5) Biliary dyskinesia Current visit: Yes Status: Acute Category: Medical Code(s): K82.8 - Other specified diseases of gallbladder - Assessment and plan all Dx Assessment and Plan for all problems:: Patient wants to go home and see a surgeon on an outpatient basis. Will advance diet today and discuss further care with Dr. Carmichael.
[2018-04-25 09:15] LABS: Hepatitis B Core Antibody IgM Negative (Negative); Hepatitis B Surface Antigen Negative (Negative)
--- NOTE | 2018-04-25 15:58 | Discharge Summary ---
General - General Admission date:: 04/22/18 Discharge date: 04/25/18 HPI HPI: Ms. Tony is a 22yo female who has had abdominal discomfort for the past 2 days. The pain is in the right side. She has had some diarrhea. She has not had vomiting. Her evaluation in the emergency room reportedly pointed toward colitis rather than a gallbladder problem. She is receiving IV antibiotics. There is a surgical consult. Hospital Course Hospital Course: The patient was started on abx and pain medication. She was also restarted on her toprol. Trichomonas was found in her urine. She was already receiving flagyl. Dr. Nicole saw the patient and felt her CT showed changes most c/w enterocolitis and her RUQ US showed changes concerning for hepatitis but no significant GB abnormality. He recommended a hepatitis panel. 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 Dr. Hua saw the patient and did a pelvic examination. He did not feel she had PID. He did a transvaginal U/S that showed some ovarian cysts, but nothing else acute. He also did a urine test, which was negative, and a urine drug screen which was positive for cocaine. 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 She had a HIDA scan showing an EF of 17%. The patient's pain completely resolved and she wanted to go home. She was stable to be discharged home on cefdinir, flagyl, and levsin. She will need to f/u with her PCP as well as with surgery d/t her low EF on her HIDA. Objective Vital signs: Temp Pulse Resp BP Pulse Ox 98.4 F 87 18 156/85 98 04/25/18 08:00 04/25/18 08:00 04/25/18 10:35 04/25/18 08:00 04/25/18 08:00 Narrative: - Constitutional no acute distress - *Routine HEENT Exam Head: Present: normocephalic, atraumatic Eye: Present: EOMI ENT: Present: mucous membranes dry - *Routine Neck Exam Present: supple, full ROM - *Routine Respiratory Exam Present: CTA bilaterally - *Routine Cardiovascular Exam Present: RRR - *Routine Abdominal Exam Present: soft, normoactive bowel sounds, tenderness (right upper and mid quadrants) - *Routine Extremities Exam Absent: edema - *Routine Skin Exam Present: intact - *Routine Neurological Exam Present: alert, oriented X3 Results Labs on day of discharge: Labs from last 24 hours 04/22/18 04/22/18 17:49 17:49 Urine HCG, Qual Negative Urine Opiates Screen Negative Urine Methadone Screen Negative Ur Barbituates Screen Negative Ur Phencyclidine Scrn Negative Ur Amphetamines Screen Negative U Benzodiazepines Scrn Positive H Urine Cocaine Screen Positive H U Marijuana (THC) Screen Positive H Preliminary micro results at discharge 04/22/18 19:13 Blood Culture - Preliminary Blood NO GROWTH AFTER 48 HOURS 04/22/18 19:13 Blood Culture - Preliminary Blood NO GROWTH AFTER 48 HOURS DS: Diagnosis - Discharge Diagnosis (1) Colitis Status: Acute (2) Hypertension Status: Acute (3) RUQ abdominal pain Status: Acute (4) Trichomonas infection Status: Acute (5) Biliary dyskinesia Status: Acute Discharge Plan - Patient Discharge Instructions ACTIVITY: Limited activity DIET: low fat, low cholesterol Patient Instructions: DI for Colitis - Follow up Plan Follow up with: Jed Nicole MD [Staff Physician] - 04/29/18 Disposition: Home, Self-Senior Care Medications: Home Medications Medication Instructions Recorded Confirmed Type Metoprolol Tartrate 50 mg PO DAILY 04/23/18 04/23/18 History Prescriptions/Medication Reconciliation: New Cefdinir [Omnicef 300mg Capsule] 300 mg PO BID #14 cap Hyoscyamine Sulfate 0.125 mg PO TIDP PRN #30 tab.rapdis PRN Reason: Cramping metroNIDAZOLE [metroNIDAZOLE 500mg Tablet] 0 mg PO TID #20 tab Continue Metoprolol Tartrate 50 mg PO DAILY
[2018-04-25 18:04] LABS: Hepatitis C Antibody <0.1 s/co ratio (0.0-0.9)
[2018-04-26 17:15] LABS: HIV Screen 4th Generation wRfx Non Reactive (Non Reactive)
== END 2018-04-25 10:45 | disposition home or self-care (01) ==
LOC: ER 17:26 → 2ND 17:26
PROVIDERS: ADMIT Family Medicine; ATTEND Family Medicine

== ENCOUNTER 2019-03-21 06:59 | Emergency (ER) | payer OTHER, SELFPAY ==
[2019-03-21 07:17] VITALS: BP 161/93; PULSE 91; RESP 16; TEMP 37.1; O2SAT 100; BMI 22.1
--- NOTE | 2019-03-21 07:25 | HMH.EDGENADL ---
ED Disposition Clinical Impression: First trimester Disposition: Home, Self-Care Condition on Discharge: Good Instructions: DI for Nausea -- Adult, Urinary Tract Infection Prescriptions: cephALEXin [Keflex 500mg Cap] 500 mg PO TID 3 Days #15 cap Ondansetron HCl [Zofran 4mg Tab] 4 mg PO TID #10 tab Referrals: Jerrell Ayala [Primary Care Provider] - Time of Disposition: 08:03 - Critical Care Critical Care Time: No Attestation: On , the high probability of a clinically significant, sudden or life threatening deterioration of the following system(s) required my full and direct attention, intervention and personal management. The time I documented below is in addition to time spent performing reported procedures but includes the following listed in this critical care notation. Medical Decision Making - Medical Records Medical records reviewed: Yes: I reviewed the patient's medical records. - Javed Inquiry Pt receiving controlled substance: No Javed was queried for this patient: No Vital Signs: 03/21/19 07:17 Temperature 98.7 F Temperature Source Oral Pulse Rate [Left Radial] 91 H Respiratory Rate 16 Blood Pressure [Right Arm] 161/93 H Blood Pressure Mean [Right Arm] 115 Blood Pressure Source [Right Arm] Automatic Cuff Blood Pressure Position [Right Arm] Sitting 02 Sat by Pulse Oximetry 100 Oxygen Delivery Method Room Air - Lab Data Lab results reviewed: Yes: I reviewed the patient's lab results. Orders (Tests/Meds): ORDERS Category Date Time Status Urinalysis and Microscopic Stat Lab 03/21/19 07:22 Ordered Urine , HCG Qual. Stat Lab 03/21/19 07:22 Ordered General Adult HPI - General Stated complaint: Nausea and Can't keep anything down Time Seen by Provider: 03/21/19 07:25 Mode of Arrival: Ambulatory Source of Information: Patient Limitations: No Limitations Description of Symptoms (Recalled from ER Triage Doc. by RN): c/o nausea since yesterday morning, states she took 2 test that were positive. I think I am dehydrated . - History of Present Illness HPI narrative: vomiting for a week, lmp february 06 , now six weeks based on pos hcg. vomited all night without abdominal pain - Related Data Previous Rx's Medication Instructions Recorded Ondansetron HCl [Zofran 4mg Tab] 4 mg PO TID #10 tab 03/21/19 cephALEXin [Keflex 500mg Cap] 500 mg PO TID 3 Days #15 cap 03/21/19 Allergies Allergy/AdvReac Type Severity Reaction Status Date / Time No Known Allergies Allergy Verified 04/22/18 17:41 [facility] History - Hepatitis A Screen Drug use history?: No High risk sexual behaviors?: No History of sexually transmitted infection?: No Currently employed?: No Childcare worker?: No Do you have indoor plumbing?: Yes Do you have electricity?: Yes Attestation statement:: This patient has been screened for Hepatitis A risk factors. I have reviewed the patient's past medical history: Yes Medical History: Reports:: Hypertension Denies:: Cancer, Diabetes Mellitus Type 1, Diabetes Mellitus Type 2, MRSA Other Surgeries: Yes: No Previous Surgery Amputation: No Fractures: No - Social History Smoking Status: Current every day smoker Tobacco Type: cigarettes # Packs/Day (cigarettes): 1 #Yrs smoked (if former smoker): 11 Alcohol Intake: never Substance Use Type: marijuana Occupational Status: unemployed Housing: house Household Members: family - Psychiatric History Expresses thoughts of harming self/others: None Suicide Plan Description: No Plan Family Hx:: Cancer (ovarian) ROS Obtained: Yes All systems reviewed & no additional complaints - Constitutional Constitutional: Denies fever(s) - ENT Ears, Nose, Mouth, and Throat: Denies sore throat - Cardiovascular Cardiovascular: Denies chest pain, Denies dyspnea - Respiratory Respiratory: No cough, No dyspnea - Gastrointestinal Gastrointestingal: Reports: nausea, vomiting.
[2019-03-21 07:26] LABS: Microscopic, Urine URINE MICROSCOPIC (MICROSCOPIC)
[2019-03-21 07:30] LABS: Appearance,Urine CLOUDY (Clear); Blood, Urine Negative (Negative); Color,Urine YELLOW (Yellow); Glucose,Urine (UA) Negative (Negative); Ketones,Urine 2+ (Negative); Leukocyte Esterase,Urine TRACE (Negative); Nitrate,Urine Negative (Negative); Protein,Urine TRACE (Negative); Specific Gravity, Urine 1.025 (1.005-1.030); Urobilinogen,Urine 0.2 EU/dl (0.2)
[2019-03-21 07:32] LABS: Urine Pregnancy, HCG Qual. Positive (Negative)
[2019-03-21 07:37] LABS: Bilirubin,Urine Negative (Negative)
[2019-03-21 07:38] LABS: Bacteria,Urine 4+ /lpf; Mucus,Urine 3+ /lpf
--- NOTE | 2019-03-21 07:41 | ED_ITS ---
ED Disposition Clinical Impression: First trimester Disposition: Home, Self-Care Condition on Discharge: Good Instructions: DI for Nausea -- Adult, Urinary Tract Infection Prescriptions: cephALEXin [Keflex 500mg Cap] 500 mg PO TID 3 Days #15 cap Ondansetron HCl [Zofran 4mg Tab] 4 mg PO TID #10 tab Referrals: Jerrell Ayala [Primary Care Provider] - Time of Disposition: 08:03 - Critical Care Critical Care Time: No Attestation: On , the high probability of a clinically significant, sudden or life threatening deterioration of the following system(s) required my full and direct attention, intervention and personal management. The time I documented below is in addition to time spent performing reported procedures but includes the following listed in this critical care notation. Medical Decision Making - Medical Records Medical records reviewed: Yes: I reviewed the patient's medical records. - Javed Inquiry Pt receiving controlled substance: No Javed was queried for this patient: No Vital Signs: 03/21/19 07:17 Temperature 98.7 F Temperature Source Oral Pulse Rate [Left Radial] 91 H Respiratory Rate 16 Blood Pressure [Right Arm] 161/93 H Blood Pressure Mean [Right Arm] 115 Blood Pressure Source [Right Arm] Automatic Cuff Blood Pressure Position [Right Arm] Sitting 02 Sat by Pulse Oximetry 100 Oxygen Delivery Method Room Air - Lab Data Lab results reviewed: Yes: I reviewed the patient's lab results. Orders (Tests/Meds): ORDERS Category Date Time Status Urinalysis and Microscopic Stat Lab 03/21/19 07:22 Ordered Urine , HCG Qual. Stat Lab 03/21/19 07:22 Ordered General Adult HPI - General Stated complaint: Nausea and Can't keep anything down Time Seen by Provider: 03/21/19 07:25 Mode of Arrival: Ambulatory Source of Information: Patient Limitations: No Limitations Description of Symptoms (Recalled from ER Triage Doc. by RN): c/o nausea since yesterday morning, states she took 2 test that were positive. I think I am dehydrated . - History of Present Illness HPI narrative: vomiting for a week, lmp february 06 , now six weeks based on pos hcg. vomited all night without abdominal pain - Related Data Previous Rx's Medication Instructions Recorded Ondansetron HCl [Zofran 4mg Tab] 4 mg PO TID #10 tab 03/21/19 cephALEXin [Keflex 500mg Cap] 500 mg PO TID 3 Days #15 cap 03/21/19 Allergies Allergy/AdvReac Type Severity Reaction Status Date / Time No Known Allergies Allergy Verified 04/22/18 17:41 [facility] History - Hepatitis A Screen Drug use history?: No High risk sexual behaviors?: No History of sexually transmitted infection?: No Currently employed?: No Childcare worker?: No Do you have indoor plumbing?: Yes Do you have electricity?: Yes Attestation statement:: This patient has been screened for Hepatitis A risk factors. I have reviewed the patient's past medical history: Yes Medical History: Reports:: Hypertension Denies:: Cancer, Diabetes Mellitus Type 1, Diabetes Mellitus Type 2, MRSA Other Surgeries: Yes: No Previous Surgery Amputation: No Fractures: No
[2019-03-21 08:00] VITALS: BP 159/100; PULSE 73; O2SAT 100
[2019-03-21 08:14] LABS: Basophils % 0.4 % (0.1-2.0); Eosinophils # 0.1 K/mm3 (0.0-0.4); Eosinophils % 0.6 % (0.1-12.0); Hemoglobin 13.8 g/dL (12.2-16.2); Lymphocytes # 2.2 K/mm3 (0.7-4.5); Lymphocytes % 25.8 % (10-50); Mean Corpuscular HGB Conc 35.5 g/dL (31.8-35.4); Mean Corpuscular Hemoglobin 30.1 pg (27.0-31.2); Mean Corpuscular Volume 84.9 fl (81-99); Mean Platelet Volume 9.2 fl (7.4-10.4); Monocytes # 0.5 K/mm3 (0.1-1.0); Monocytes % 5.4 % (1.7-9.3); Neutrophils # 5.8 K/mm3 (1.8-7.8); Neutrophils % 67.7 % (37.0-80.0); Platelet Count 254 K/mm3 (142-424); Red Blood Count 4.59 M/mm3 (4.20-5.40); Red Cell Distribution Width 12.7 % (11.5-17.5); White Blood Count 8.5 K/mm3 (4.8-10.8)
[2019-03-21 08:26] LABS: Alanine Aminotransferase 22 U/L (12-78); Albumin Level 4.1 gm/dL (3.4-5.0); Albumin/Globulin Ratio 1.3 (1.1-1.8); Alkaline Phosphatase 66 U/L (46-116); Anion Gap 14.8 mEq/L (5-15); Aspartate Amino Transferase 10 U/L (15-37); Bilirubin,Total 0.4 mg/dL (0.2-1.0); Blood Urea Nitrogen 12 mg/dL (7-18); Calcium 8.5 mg/dL (8.5-10.1); Carbon Dioxide 25 mmol/L (21.0-32.0); Chloride 102 mmol/L (98-107); Creatinine Clearance Estimated 112 mL/min (50-200); Creatinine,Serum 0.69 mg/dL (0.55-1.02); Estimated Glomerular Filt Rate 107 ml/min (>60); GFR (African American) 130 ML/MIN (>60); Globulin 3.1 gm/dl (1.3-3.2); Glucose 111 mg/dL (74-106); Potassium 3.8 mmoL/L (3.5-5.1); Sodium 138 mmol/L (136-145); Total Protein,Serum 7.2 gm/dL (6.4-8.2)
[2019-03-21 08:42] VITALS: BP 139/88; PULSE 71; RESP 17; TEMP 36.8; O2SAT 100
== END 2019-03-21 08:55 | disposition home or self-care (01) ==
PROVIDERS: Emergency Provider Emergency Medicine; PCP Family Medicine
DX: O21.0 Mild hyperemesis gravidarum (principal); Z3A.01 Less than 8 weeks gestation of pregnancy; I10 Essential (primary) hypertension; F17.210 Nicotine dependence, cigarettes, uncomplicated
CPT/HCPCS: 80053; 81001; 81025; 85025; 87086; 96365; 99283

== ENCOUNTER 2019-09-16 18:12 | Outpatient (CLI) | payer OTHER, SELFPAY ==
[2019-09-16 18:40] VITALS: BP 163/113; PULSE 98; RESP 20; O2SAT 98; BMI 29.4
== END 2019-09-16 20:40 | disposition home or self-care (01) ==
LOC: OBOUT 18:15 → OB 18:17
PROVIDERS: Visit Provider Obstetrics & Gynecology
DX: O36.8130 Decreased fetal movements, third trimester, not applicable or unspecified (principal); Z3A.33 33 weeks gestation of pregnancy
CPT/HCPCS: 59025

== ENCOUNTER 2020-09-08 09:35 | Emergency (ER) | payer OTHER, SELFPAY ==
[2020-09-08 09:40] VITALS: BP 160/101; PULSE 86; RESP 18; TEMP 36.7; O2SAT 98; BMI 24.7
--- NOTE | 2020-09-08 09:46 | HMH.EDUTC ---
[facility] [place] Disposition Clinical Impression: Exposure to COVID-19 virus Disposition: Home, Self-Care Condition on Discharge: Good Instructions: Preventing the Spread of Coronavirus Discharge Instructions Additional Instructions: Drink plenty of fluids. Take tylenol for pain or fever. Follow up with your regular doctor regarding her blood pressure issues. GO TO THE ER FOR ANY WORSENING SYMPTOMS Referrals: PCP,No [Primary Care Provider] - Forms: Work/School Release Time of Disposition: 10:22 Medical Decision Making - Medical Records Medical records reviewed: No: I reviewed the patient's medical records. - Javed Inquiry Pt receiving controlled substance: No Vital Signs: 09/08/20 09:40 09/08/20 10:23 Temperature 98.1 F 98.1 F Temperature Source Oral Pulse Rate 86 Pulse Rate [Right Brachial] 86 Respiratory Rate 18 18 Blood Pressure 160/101 H Blood Pressure [Right Arm] 160/101 H Blood Pressure Mean [Right Arm] 120 Blood Pressure Source [Right Arm] Automatic Cuff Blood Pressure Position [Right Arm] Sitting 02 Sat by Pulse Oximetry 98 Oxygen Delivery Method Room Air Orders (Tests/Meds): ORDERS Category Date Time Status Covid-19 Nasal PCR ([facility]) Routine Lab 09/08/20 10:00 Received [facility] [place] HPI - General Stated complaint: Covid test Time Seen by Provider: 09/08/20 09:46 - History of Present Illness Provider Complaint: She states that she left work early yesteday due to a migraine. In order for her to return to work she needs to be tested for covid. She denies any covid symptoms and her headache is better. - Related Data Home Medications Medication Instructions Recorded Confirmed Labetalol HCl 200 mg PO BID 09/16/19 09/16/19 glyBURIDE [Diabeta 5mg tablet] 5 mg PO BID 09/16/19 09/16/19 Allergies Allergy/AdvReac Type Severity Reaction Status Date / Time No Known Allergies Allergy Verified 04/22/18 17:41 [facility] History - Hepatitis A Screen Attestation statement:: This patient has been screened for Hepatitis A risk factors. I have reviewed the patient's past medical history: Yes Medical History: Reports:: Hypertension Denies:: Cancer, Diabetes Mellitus Type 1, Diabetes Mellitus Type 2, MRSA Other Surgeries: Yes: No Previous Surgery. No: Amputation: No Fractures: No - Social History Smoking Status: Current every day smoker Tobacco Type: cigarettes # Packs/Day (cigarettes): 1 #Yrs smoked (if former smoker): 11 Alcohol Intake: never Substance Use Type: marijuana Occupational Status: employed Housing: house Household Members: family Family Hx:: Cancer (ovarian) ROS Obtained: Yes All systems reviewed & no additional complaints - Constitutional Constitutional: Reports system reviewed and no additional complaints, except as docu - Eyes Eyes: Reports system reviewed and no additional complaints, except as docu - ENT Ears, Nose, Mouth, and Throat: Reports system reviewed and no additional complaints, except as docu - Cardiovascular Cardiovascular: Reports system reviewed and no additional complaints, except as docu - Respiratory Respiratory: Yes system reviewed and no additional complaints, except as docu - Gastrointestinal Gastrointestingal: Reports: system reviewed and no additional complaints, except as docu Physical Exam - General General appearance: alert, in no apparent distress - Head Head exam: atraumatic, normocephalic, normal inspection - Eye Eye exam: Present: normal appearance, PERRL, EOMI - ENT ENT exam: Present: normal exam, normal oropharynx, mucous membranes moist, TM's normal bilaterally, normal external ear exam - Neck Neck exam: Present: normal inspection, full ROM, trachea midline. Absent: meningismus, lymphadenopathy - Chest Chest inspection: Present: normal inspection, symmetric chest wall rise. Absent: tenderness - Respiratory Respiratory exam: Present: normal lung sounds bilaterally. Absent: re
[2020-09-08 10:23] VITALS: BP 160/101; PULSE 86; RESP 18; TEMP 36.7; O2SAT 98
== END 2020-09-08 10:32 | disposition home or self-care (01) ==
PROVIDERS: Emergency Provider Nurse Practitioner Family
DX: Z20.828 Contact with and (suspected) exposure to other viral communicable diseases (principal); G43.909 Migraine, unspecified, not intractable, without status migrainosus; I10 Essential (primary) hypertension; Z79.899 Other long term (current) drug therapy
CPT/HCPCS: 99201; U0003

== ENCOUNTER 2020-11-02 10:28 | Emergency (ER) | payer OTHER, SELFPAY ==
[2020-11-02 10:47] VITALS: BP 149/90; PULSE 87; RESP 18; TEMP 36.8; O2SAT 98; BMI 25.8
--- NOTE | 2020-11-02 10:55 | HMH.EDUTC ---
[facility] [place]ression: Encounter for laboratory testing for COVID-19 virus Disposition: Home, Self-Care Condition on Discharge: Good Instructions: DI for COVID-19 (Suspected or Confirmed ), Coronavirus Disease 2019, Preventing the Spread of Coronavirus Discharge Instructions Additional Instructions: *Monitor Temp, Over the counter Motrin or Tylenol as directed/as needed Tylenol every 4 hours and Motrin every 6 hours (as long as your family doctor has told you that you can take it) for fever or pain. and straight to ER if unable to lower temp less than 101.0 after medication given Follow up IMMEDIATELY for new or worsening symptoms or no Noticeable improvement over the next 48-72 hours. 911 for difficulty breathing or swallowing You were tested for today for COVID19 your test result should be back in the next 24-48 hours, you may call to the [facility] to see if your test results are back in the next 48 hours [phone] [facility] hours are 9am-9pm You was given a handout with instructions for Self Quarantine and Self isolation for while you wait on test results and what to do if they are positive If you are positive the Health Dept will be contacting you also Referrals: PCP,No [Primary Care Provider] - As needed Forms: Work/School Release Time of Disposition: 10:58 Medical Decision Making - Javed Inquiry Pt receiving controlled substance: No Javed was queried for this patient: No Vital Signs: 11/02/20 10:47 Temperature 98.2 F Temperature Source Oral Pulse Rate [Right Brachial] 87 Respiratory Rate 18 Blood Pressure [Right Arm] 149/90 H Blood Pressure Mean [Right Arm] 109 Blood Pressure Source [Right Arm] Automatic Cuff Blood Pressure Position [Right Arm] Sitting 02 Sat by Pulse Oximetry 98 Oxygen Delivery Method Room Air Orders (Tests/Meds): ORDERS Category Date Time Status Covid-19 Nasal PCR Sendout P&C Stat Lab 11/02/20 10:30 [place] [facility] [place] - General Stated complaint: covid test Time Seen by Provider: 11/02/20 10:55 Mode of Arrival: Ambulatory Source of Information: Patient Limitations: No Limitations Description of Symptoms (Recalled from Triage Doc. by RN): NEEDING COVID TEST FOR WORK. 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 Denies any symptoms at this time - Related Data Home Medications Medication Instructions Recorded Confirmed Labetalol HCl 100 mg PO BID 11/02/20 11/02/20 Allergies Allergy/AdvReac Type Severity Reaction Status Date / Time No Known Allergies Allergy Verified 04/22/18 17:41 - Worker's Comp Is this a Worker's Comp case?: No [facility] History - Hepatitis A Screen Drug use history?: No High risk sexual behaviors?: No History of sexually transmitted infection?: No Currently employed?: No Childcare worker?: No Do you have indoor plumbing?: Yes Do you have electricity?: Yes Attestation statement:: This patient has been screened for Hepatitis A risk factors. I have reviewed the patient's past medical history: Yes Medical History: Reports:: Hypertension Denies:: Cancer, Diabetes Mellitus Type 1, Diabetes Mellitus Type 2, MRSA Other Surgeries: Yes: No Previous Surgery. No: Amputation: No Fractures: No - Social History Smoking Status: Current every day smoker Tobacco Type: cigarettes # Packs/Day (cigarettes): 1 #Yrs smoked (if forme
[2020-11-02 11:03] VITALS: BP 149/90; PULSE 87; RESP 18; TEMP 36.8; O2SAT 98
[2020-11-03 07:37] LABS: Covid-19 Nasal PCR Sendout P&C NEGATIVE
== END 2020-11-02 11:05 | disposition home or self-care (01) ==
PROVIDERS: Emergency Provider Nurse Practitioner
DX: Z20.822 Contact with and (suspected) exposure to COVID-19 (principal); R51.9 Headache, unspecified; I10 Essential (primary) hypertension; F17.210 Nicotine dependence, cigarettes, uncomplicated
CPT/HCPCS: 99202; G0463; U0004

== ENCOUNTER → 2021-01-12 14:09 | Outpatient (CLI) | payer OTHER, SELFPAY ==
[2021-01-12 14:21] LABS: Alanine Aminotransferase 16 U/L (12-78); Albumin Level 4.2 g/dl (3.5-5.0); Albumin/Globulin Ratio 1.8 (1.1-1.8); Alkaline Phosphatase 82 U/L (38-126); Anion Gap 11.3 mEq/L (5-15); Aspartate Amino Transferase 24 U/L (14-36); Bilirubin,Total 0.4 mg/dl (0.2-1.3); Blood Urea Nitrogen 10 mg/dl (7-17); Calcium 9.4 mg/dl (8.4-10.2); Carbon Dioxide 26 mmol/L (22.0-30.0); Chloride 106 mmol/L (98-107); Chol/HDL Ratio 6.5 (1-3.5); Cholesterol 175 mg/dl (140-200); Estimated Glomerular Filt Rate 104 ml/min (>60); GFR (African American) 125 ML/MIN (>60); Globulin 2.4 g/dL (1.3-3.2); Glucose 136 mg/dl (74-100); HDL Cholesterol 27 mg/dl (40-60); Potassium 4.3 mmoL/L (3.5-5.1); Sodium 139 mmol/L (136-145); Total Protein,Serum 6.6 g/dl (6.3-8.2); Triglycerides 161 mg/dl (30-150); VLDL Cholesterol 32 mg/dL (0-40)
[2021-01-12 14:29] LABS: Basophils # 0.1 K/mm3 (0-0.2); Basophils % 0.7 % (0.1-2.0); Eosinophils # 0.3 K/mm3 (0.0-0.4); Eosinophils % 3.1 % (0.1-12.0); Hemoglobin 13.5 g/dL (12.2-16.2); Lymphocytes # 2.9 K/mm3 (0.7-4.5); Mean Corpuscular HGB Conc 32.1 g/dL (31.8-35.4); Mean Corpuscular Hemoglobin 26.6 pg (27.0-31.2); Mean Corpuscular Volume 82.8 fl (81-99); Mean Platelet Volume 11.4 fl (7.4-10.4); Monocytes # 0.6 K/mm3 (0.1-1.0); Monocytes % 5.1 % (1.7-9.3); Neutrophils # 7.2 K/mm3 (1.8-7.8); Neutrophils % 65.1 % (37.0-80.0); Platelet Count 299 K/mm3 (142-424); Red Blood Count 5.07 M/mm3 (4.20-5.40); Red Cell Distribution Width 14.7 % (11.5-17.5)
[2021-01-12 14:33] LABS: Direct LDL Cholesterol 118.72 mg/dL (100-129)
[2021-01-12 14:39] LABS: T4 (Thyroxine) 9.6 ug/dl (5.53-11.0)
[2021-01-12 14:40] LABS: 25-OH Vitamin D, Total < 12.8 ng/mL (30-100)
[2021-01-12 14:53] LABS: Thyroid Stimulating Hormone 1.18 uIU/mL (0.465-4.68)
== END ==
PROVIDERS: Visit Provider Family Medicine
DX: I10 Essential (primary) hypertension (principal)
CPT/HCPCS: 80053; 80061; 82306; 84436; 84443; 85025

== ENCOUNTER 2021-02-13 12:37 | Emergency (ER) | payer OTHER, SELFPAY ==
[2021-02-13 13:02] VITALS: BP 131/81; PULSE 88; RESP 16; TEMP 36.8; O2SAT 97; BMI 29.0
--- NOTE | 2021-02-13 13:09 | HMH.EDUTC ---
[facility] [place]: Encounter for laboratory testing for COVID-19 virus Headache Qualifiers: Headache type: unspecified Headache chronicity pattern: unspecified pattern Intractability: not intractable Qualified Code(s): R51.9 - Headache, unspecified Disposition: Home, Self-Care Condition on Discharge: Good Instructions: DI for Migraine, DI for COVID-19 (Suspected or Confirmed ), Coronavirus Disease 2019, Preventing the Spread of Coronavirus Discharge Instructions Additional Instructions: *Monitor Temp, Over the counter Motrin or Tylenol as directed/as needed Tylenol every 4 hours and Motrin every 6 hours (as long as your family doctor has told you that you can take it) for fever or pain. and straight to ER if unable to lower temp less than 101.0 after medication given Follow up IMMEDIATELY for new or worsening symptoms or no Noticeable improvement over the next 48-72 hours. 911 for difficulty breathing or swallowing You were tested for today for COVID19 your test result should be back in the next 24-48 hours, you may call to the [facility] to see if your test results are back in the next 48 hours [phone] [facility] hours are 9am-9pm You was given a handout with instructions for Self Quarantine and Self isolation for while you wait on test results and what to do if they are positive If you are positive the Health Dept will be contacting you also Referrals: Pedro Pablo Agustin MD [Primary Care Provider] - As needed Forms: Work/School Release Time of Disposition: 13:44 Medical Decision Making - Javed Inquiry Pt receiving controlled substance: No Javed was queried for this patient: No Vital Signs: 02/13/21 13:02 Temperature 98.3 F Temperature Source Oral Pulse Rate [Right Brachial] 88 Respiratory Rate 16 Blood Pressure [Right Arm] 131/81 Blood Pressure Mean [Right Arm] 97 Blood Pressure Source [Right Arm] Automatic Cuff Blood Pressure Position [Right Arm] Sitting 02 Sat by Pulse Oximetry 97 Oxygen Delivery Method Room Air - Lab Data Lab results reviewed: Yes: I reviewed the patient's lab results. Lab Results 02/13/21 13:09: [facility]st Clinic Negative Orders (Tests/Meds): ED MEDICATIONS Discontinued Medications Generic Name Dose Route Start Last Admin Trade Name Freq PRN Reason Stop Dose Admin Ketorolac Tromethamine 30 mg 02/13/21 13:23 02/13/21 13:31 Ketorolac 60mg/2ml Vial IM 02/13/21 13:24 30 mg ONCE ONE Administration ORDERS Category Date Time Status Covid-19 Nasal PCR ([facility]) Routine Lab 02/13/21 13:15 Received Medical Decision Narrative: Patient is driving state that she has mother with her but she is driving discussed with patient and will give her Torodol injection for headache but not use the Bendadryl due to driving and patient agreed Patient states that medication helped with headache [facility] [place] General Stated complaint: Migraine; covid test Time Seen by Provider: 02/13/21 13:09 Mode of Arrival: Ambulatory Source of Information: Patient Limitations: No Limitations Description of Symptoms (Recalled from Triage Doc. by RN): LEFT WORK DUE TO HAVING A MIGRAINE YESTERDAY AND CANNOT RETURN WITHOUT A NEGATIVE COVD TEST. HEENT Symptoms (Recalled from RN notes): Yes Resp Symptoms (Recalled from RN notes): Yes Skin Symptoms (Recalled from RN notes): No MS Symptoms (Recalled from RN notes): No Functional Status (Recalled from RN notes): WNL - History of Present Illness Provider Complaint: Patient states that she had to leave work early yesterday with Migraine headache and they will not let her return until she has a negative COVID test due to headache being a common symptom of COVID States that she has a history of migraines and this one is like others she has had in the past and wants to get the shot to help it - Related Data Home Medications Medication Instructions Recorded Confirmed methadone 40 mg soluble tablet 60 mg PO DAILY tab 01/12/21 04/0
[2021-02-13 13:19] LABS: UTC Pregnancy Test, Urine Negative (Negative)
[2021-02-13 14:01] VITALS: BP 131/80; PULSE 88; RESP 16; TEMP 36.8; O2SAT 97
== END 2021-02-13 14:02 | disposition home or self-care (01) ==
PROVIDERS: Emergency Provider Nurse Practitioner; PCP Family Medicine
DX: Z20.822 Contact with and (suspected) exposure to COVID-19 (principal); G43.909 Migraine, unspecified, not intractable, without status migrainosus; I10 Essential (primary) hypertension; F17.210 Nicotine dependence, cigarettes, uncomplicated
CPT/HCPCS: 81025; 96372; 99202; G0463; U0003

== ENCOUNTER 2021-08-22 15:40 | Emergency (ER) | payer OTHER, SELFPAY ==
[2021-08-22 15:45] VITALS: BP 179/106; PULSE 93; RESP 18; TEMP 37.3; O2SAT 98; BMI 26.5
--- NOTE | 2021-08-22 16:16 | HMH.EDUTC ---
[facility] [place] Disposition Clinical Impression: Sinusitis Qualifiers: Sinusitis location: unspecified location Chronicity: unspecified Qualified Code(s): J32.9 - Chronic sinusitis, unspecified Disposition: Home, Self-Care Condition on Discharge: Good Instructions: Sinusitis, DI for Sinusitis Additional Instructions: *Monitor Temp, Over the counter Motrin or Tylenol as directed/as needed Tylenol every 4 hours and Motrin every 6 hours (as long as your family doctor has told you that you can take it) for fever or pain. and straight to ER if unable to lower temp less than 101.0 after medication given *Warm salt water gargles may help to soothe the throat *Throat Lozenges *Warm fluids like tea with honey may help to soothe the throat *Sleep elevated *Humidifier/Vaporizer Your throat swab was sent for culture. Those results are typically sent to your primary care. Be sure to follow up in 2-3 days with your family doctor/primary care physician if no improvement so they can review those result and treat if necessary. If you don?t have a primary care doctor, I recommend you get one but in the mean time, you will have to return to a walk in clinic Follow up IMMEDIATELY for new or worsening symptoms or no Noticeable improvement over the next 48-72 hours. 911 for difficulty breathing or swallowing You were tested for today for COVID19 your test result should be back in the next 24-48 hours, you may call to the [facility] to see if your test results are back in the next 48 hours [phone] [facility] hours are 9am-9pm You was given a handout with instructions for Self Quarantine and Self isolation for while you wait on test results and what to do if they are positive If you are positive the Health Dept will be contacting you also Make sure to take your Vitamins Vit. C Vit D and Zinc if you can take them Take you blood pressure medicine as prescribe Prescriptions: Amoxicillin/Potassium Clav [Augmentin 875-125 Tablet] 1 tab PO Q12H 7 Days #14 tab [id number] methylPREDNISolone [Medrol 4mg tab] 4 mg PO DIRECTED #21 tab Transmission Status[id number] Referrals: Pedro Pablo Agustin MD [Primary Care Provider] - As needed Forms: Work/School Release Time of Disposition: 16:22 Medical Decision Making - Javed Inquiry Pt receiving controlled substance: No Javed was queried for this patient: No Vital Signs: 08/22/21 15:45 Temperature 99.1 F Temperature Source Oral Pulse Rate [Right Brachial] 93 H Respiratory Rate 18 Blood Pressure [Right Arm] 179/106 H Blood Pressure Mean [Right Arm] 130 Blood Pressure Source [Right Arm] Automatic Cuff Blood Pressure Position [Right Arm] Sitting 02 Sat by Pulse Oximetry 98 Oxygen Delivery Method Room Air - Lab Data Lab results reviewed: Yes: I reviewed the patient's lab results. 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 by RN): PATIENT C/O DECREASED APPETITE, VOMITING, COLD CHILLS, BODY ACHES, HEADACHE AND FEVER SINCE LAST NIGHT HEENT Symptoms (Recalled from RN notes): Yes Resp Symptoms (Recalled from RN notes): No Skin Symptoms (Recalled f
[2021-08-22 16:21] LABS: UTC Strep Screen (Rapid) Negative (Negative)
[2021-08-22 16:28] VITALS: BP 179/106; PULSE 93; RESP 18; TEMP 37.3; O2SAT 98
== END 2021-08-22 16:31 | disposition home or self-care (01) ==
PROVIDERS: Emergency Provider Nurse Practitioner; PCP Family Medicine
DX: J32.9 Chronic sinusitis, unspecified (principal); I10 Essential (primary) hypertension; F17.210 Nicotine dependence, cigarettes, uncomplicated
CPT/HCPCS: 87880; 99203; C9803; G0463; U0003; U0005